=== PATIENT | male | born 1995 | race Caucasian/White ===

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

== ENCOUNTER 2017-01-16 20:54 | Emergency (ER) | payer SELFPAY ==
[~2017-01-16] VITALS: Ht 170.2 cm; Wt 60.6 kg
[2017-01-16 21:02] VITALS: BP 139/84; PULSE 88; RESP 18; TEMP 97.7; O2SAT 99
[2017-01-16] MEDS ORDERED: ACETAMINOPHEN/HYDROcodone 325 MG/5 MG TAB PO ONE (21:15)
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
[2017-01-16] MEDS ORDERED: TRAM50 PO (21:47)
--- NOTE | 2017-01-16 22:05 | RADRPT ---
EXAM DATE/TIME: 01/16/2017 21:23 [facility] COMPARISON: No previous studies available for comparison. INDICATIONS : Right hand pain after slamming hand in car door today. MEDICAL HISTORY : None. SURGICAL HISTORY : None. ENCOUNTER: Initial ACUITY: 1 day PAIN SCORE: 10/10 LOCATION: Right hand, 5th digit. FINDINGS: Three view examination of the right hand demonstrates healing right fifth metacarpal fracture. No acu te fracture identified. CONCLUSION: 1. There is a healing right fifth metacarpal fracture. No dislocation. No other fractures are identif ied. Deni Aviles MD on January 16, 2017 at 22:02 Board Certified Radiologist. This report was verified electronically.
== END 2017-01-16 22:12 | disposition home or self-care (01) ==
LOC: PHEFT 20:54
DX: S62.356A Nondisplaced fracture of shaft of fifth metacarpal bone, right hand, initial encounter for closed fracture (principal); W23.0XXA Caught, crushed, jammed, or pinched between moving objects, initial encounter
CPT/HCPCS: 29125; 73130

== ENCOUNTER 2017-03-08 03:48 | Emergency (ER) | payer SELFPAY ==
[~2017-03-08] VITALS: Ht 172.7 cm; Wt 58.7 kg
[~2017-03-08 03:48] MED LIST changes: -HYDR-3533 PO; -IBUP800T23 PO; +TRAM50 PO
[2017-03-08 03:53] VITALS: BP 155/77; PULSE 84; RESP 20; TEMP 98; O2SAT 100
[2017-03-08 04:17] VITALS: BP 155/77; PULSE 84; RESP 18; TEMP 98; O2SAT 100
--- NOTE | 2017-03-08 04:42 | PD ---
HPI Chief Complaint: GI Complaint Time Seen by Provider: 04:37 Travel History International Travel<30 days: No Contact w/Intl Traveler<30days: No Traveled to known affect area: No History of Present Illness HPI The patient is a 21-year-old male that complains of nausea, vomiting and diarrhea for 3 days. The vomiting was 4-5 times the last 24 hours. He denies any fever or blood in the stool or vomitus. He has some slight generalized abdominal discomfort but no focal abdominal pain at this time. PFSH Past Medical History ADHD: Yes Weight (Kg): 3 Cancer: No Cardiovascular Problems: No Developmental Delay: No Diabetes: No Diminished Hearing: No Headaches: No Medical other: Yes (PTSD) Psychiatric: Yes (adhd, schizophrenia and bipolar) Immunizations Current: Yes Migraines: No Schizophrenia: Yes Seizures: No Thyroid Disease: No Ulcer: No Influenza Vaccination: No ?: Not Past Surgical History Section: No Joint Replacement: No Pacemaker: No Other Surgery: Yes (Surg. rt. arm and fracture right little finger.) Social History Alcohol Use: No Tobacco Use: Yes (/ PPD) Substance Use: Yes (marijuana) Allergies-Medications (Allergen,Severity, Reaction): Coded Allergies: morphine (Verified Allergy, Intermediate, Rash, 03/08/17) Reported Meds & Prescriptions Reported Meds & Active Scripts Active No Active Prescriptions or Reported Medications Review of Systems Except as stated in HPI: all other systems reviewed are Neg Physical Exam Narrative GENERAL: The patient is alert, oriented 3 in minimal apparent distress with his abdominal discomfort. The vital signs show blood pressure 155/77 but otherwise normal. The patient appears moderately dehydrated. SKIN: Focused skin assessment warm/dry. HEAD: Atraumatic. Normocephalic. EYES: Pupils equal and round. No scleral icterus. No injection or drainage. ENT: No nasal bleeding or discharge. Mucous membranes pink and moist. NECK: Trachea midline. No JVD. CARDIOVASCULAR: Regular rate and rhythm. No murmur appreciated. RESPIRATORY: No accessory muscle use. Clear to auscultation. Breath sounds equal bilaterally. GASTROINTESTINAL: Abdomen soft, non-tender, nondistended. Hepatic and splenic margins not palpable. No guarding or rebound is present. There is minimal discomfort to deep direct palpation diffusely over the abdomen but this is very minimal. MUSCULOSKELETAL: No obvious deformities. No clubbing. No cyanosis. No edema. NEUROLOGICAL: Awake and alert. No obvious cranial nerve deficits. Motor grossly within normal limits. Normal speech. PSYCHIATRIC: Appropriate mood and affect; insight and judgment normal. Data Data Last Documented VS Vital Signs Date Time Temp Pulse Resp B/P (MAP) Pulse Ox O2 Delivery O2 Flow Rate FiO2 03/08/17 05:49 98.2 81 15 142/70 (94) 100 Orders Orders Complete Blood Count With Diff (03/08/17 04:42) Comprehensive Metabolic Panel (03/08/17 04:42) Lipase (03/08/17 04:42) Urinalysis - C+S If Indicated (03/08/17 04:42) Iv Access Insert/Monitor (03/08/17 04:42) Ecg Monitoring (03/08/17 04:42) Oximetry (03/08/17 04:42) Sodium Chloride 0.9% Flush (Ns Flush) (03/08/17 04:45) Ondansetron Inj (Zofran Inj) (03/08/17 04:45) Sodium Chlor 0.9% 1000 Ml Inj (Ns 1000 M (03/08/17 04:45) Ed Discharge Order (03/08/17 05:54) Labs Laboratory Tests Test 03/08/17 04:55 White Blood Count 10.2 TH/MM3 Red Blood Count 5.21 MIL/MM3 Hemoglobin 14.6 GM/DL Hematocrit 45.0 % Mean Corpuscular Volume 86.4 FL Mean Corpuscular Hemoglobin 28.0 PG Mean Corpuscular Hemoglobin Concent 32.5 % Red Cell Distribution Width 12.3 % Platelet Count 388 TH/MM3 Mean Platelet Volume 8.3 FL Neutrophils (%) (Auto) 74.9 % Lymphocytes (%) (Auto) 19.5 % Monocytes (%) (Auto) 4.9 % Eosinophils (%) (Auto) 0.2 % Basophils (%) (Auto) 0.5 % Neutrophils # (Auto) 7.6 TH/MM3 Lymphocytes # (Auto) 2.0 TH/MM3 Monocytes # (Auto) 0.5 TH/MM3 Eosinophils # (Auto) 0.0 TH/MM3 Basophils # (Auto) 0.1 TH/MM3 CBC Comment DIFF FINAL Differential Comment Urine Color STRAW Urine Turbidity CLEAR Urine pH 6.0 Urine Specific [place] 1.005 Urine Protein NEG mg/dL Urine Glucose (UA) NEG mg/dL Urine Ketones 15 mg/dL Urine Occult Blood NEG Urine Nitrite NEG Urine Bilirubin NEG Urine Leukocyte Esterase NEG Urine RBC 0-2 /hpf Urine WBC 0-2 /hpf Urine Squamous Epithelial Cells 0-5 /hpf Urine Bacteria NONE /hpf Microscopic Urinalysis Comment CULT NOT INDICATED Blood Urea Nitrogen 14 MG/DL Creatinine 0.79 MG/DL Random Glucose 91 MG/DL Total Protein 8.5 GM/DL Albumin 4.8 GM/DL Calcium Level 9.4 MG/DL Alkaline Phosphatase 60 U/L Aspartate Amino Transf (AST/SGOT) 18 U/L Alanine Aminotransferase (ALT/SGPT) 23 U/L Total Bilirubin 0.9 MG/DL Sodium Level 134 MEQ/L Potassium Level 3.2 MEQ/L Chloride Level 102 MEQ/L Carbon Dioxide Level 23.5 MEQ/L Anion Gap 9 MEQ/L Estimat Glomerular Filtration Rate 126 ML/MIN Lipase 108 U/L [facility] Medical Decision Making Medical Screen Exam Complete: Yes Emergency Medical Condition: Yes Medical Record Reviewed: Yes Differential Diagnosis Gastroenteritis, colitis, food poisoning, electrolyte disorder, dehydration Narrative Course The patient has a gastroenteritis. This is likely viral. It is now 0555 and the patient is successfully drinking Gatorade without any nausea. Impression: Gastroenteritis Plan: The patient will given a prescription for Compazine and follow-up with a primary care physician. He needs to increase his liquid intake. Diagnosis Primary Impression: Gastroenteritis Additional Impression: Mild dehydration Additional Instructions: Continue to increase your clear liquid intake. The Compazine is one tablet every 6 hours as needed for nausea. Follow-up with a primary care physician next week. Scripts No Active Prescriptions or Reported Meds Disposition: 01 DISCHARGE HOME Condition: Stable Jabier Mcconnell MD Mar 08, 2017 04:41
[2017-03-08] MEDS ORDERED: ONDANSETRON HCL 4 MG/2 ML VIAL IV ONE (04:45)
[2017-03-08] MEDS ORDERED: SODIUM CHLOR 0.9% 1000 ML INJ 1,000 ML IV SCH (04:45)
[2017-03-08] MEDS ORDERED: SODIUM CHLORIDE 0.9% FLUSH 10 ML FLUSH IV FLUSH PRN (04:45)
[2017-03-08 05:15] LABS: AUTOMATED NEUTROPHIL # 7.6 TH/MM3 (1.8-7.7); BASOPHIL # 0.1 TH/MM3 (0-0.2); BASOPHIL % 0.5 % (0.0-2.0); EOSINOPHIL % 0.2 % (0.0-4.0); HEMOGLOBIN 14.6 GM/DL (13.0-17.0); LYMPH % 19.5 % (9.0-44.0); MEAN CELL VOLUME 86.4 FL (80.0-100.0); MEAN CORPUSCULAR HGB CONC 32.5 % (32.0-36.0); MEAN PLATELET VOLUME 8.3 FL (7.0-11.0); MONO % 4.9 % (0.0-8.0); MONOCYTE # 0.5 TH/MM3 (0-0.9); NEUT % 74.9 % (16.0-70.0); PLATELET COUNT 388 TH/MM3 (150-450); RED BLOOD COUNT 5.21 MIL/MM3 (4.50-5.90); RED CELL DISTRIBUTION WIDTH 12.3 % (11.6-17.2); WHITE BLOOD COUNT 10.2 TH/MM3 (4.0-11.0)
[2017-03-08 05:18] LABS: BILIRUBIN, URINE NEG (NEG); BLOOD, URINE NEG (NEG); GLUCOSE,URINE NEG (NEG); KETONE, URINE 15 mg/dL (NEG); NITRITE,URINE NEG (NEG); URINE LEUKOCYTE ESTERASE NEG (NEG)
[2017-03-08 05:23] LABS: CHLORIDE 102 MEQ/L (98-107); SODIUM (NA) 134 MEQ/L (136-145)
[2017-03-08 05:26] LABS: CALCIUM 9.4 MG/DL (8.5-10.1)
[2017-03-08 05:27] LABS: ALBUMIN 4.8 GM/DL (3.4-5.0); BICARBONATE 23.5 MEQ/L (21.0-32.0); BLOOD UREA NITROGEN 14 MG/DL (7-18); GLUCOSE,RANDOM 91 MG/DL (74-106)
[2017-03-08 05:30] LABS: ALT (GPT) 23 U/L (9-52); AST (GOT) 18 U/L (15-39); CREATININE 0.79 MG/DL (0.60-1.30); GLOMERULAR FILTRATION RATE 126 ML/MIN (>89)
[2017-03-08 05:31] LABS: TOTAL BILIRUBIN ADULT 0.9 MG/DL (0.2-1.0); TOTAL PROTEIN 8.5 GM/DL (6.4-8.2)
[2017-03-08 05:32] LABS: RBC, URINE 0-2 /hpf (0-3); URINE COLOR STRAW (YELLW/STRAW); WBC, URINE 0-2 /hpf (0-5)
[2017-03-08 05:33] LABS: ALKALINE PHOSPHATASE 60 U/L (45-117); SQUAMOUS EPITHELIAL CELL URINE 0-5 /hpf (0-5)
[2017-03-08 05:49] VITALS: BP 142/70; TEMP 98.2
[2017-03-08] MEDS ORDERED: PROC10TA PO (05:59)
== END 2017-03-08 06:13 | disposition home or self-care (01) ==
LOC: PHED 03:48
DX: K52.9 Noninfective gastroenteritis and colitis, unspecified (principal); E86.0 Dehydration; F17.210 Nicotine dependence, cigarettes, uncomplicated
CPT/HCPCS: 80053; 81001; 83690; 85025; 96361; 96374; 99283; J2405; J7030

== ENCOUNTER 2018-01-03 23:07 | Observation (INO) ==
[2018-01-03] MEDS ORDERED: Ketorolac Inj 30 MG/ML (IVP) Vial IV.PUSH ONE (23:54)
[2018-01-03] MEDS ORDERED: Clindamycin Inj 600 MG/4 ML Vial IV.SIG ONE (23:55)
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
[2018-01-04 00:19] LABS: Baso # (Auto) 0.1 th/mm3 (0.0-0.2); Baso % (Auto) 0.5 % (0.0-2.0); Eos # (Auto) 0.3 th/mm3 (0.0-0.4); Hematocrit 37.7 % (39.0-51.0); Hemoglobin 12.6 gm/dL (13.0-17.0); Lymph # (Auto) 1.9 th/mm3 (1.0-4.8); Lymph % (Auto) 14.8 % (9.0-44.0); Mean Corpuscular HGB Conc 33.5 % (32.0-36.0); Mean Corpuscular Hemoglobin 29.1 pg (27.0-34.0); Mean Corpuscular Volume 86.9 fL (80.0-100.0); Mean Platelet Volume 8.2 fL (7.0-11.0); Mono # (Auto) 0.9 th/mm3 (0.0-0.9); Mono % (Auto) 6.6 % (0.0-8.0); Neut # (Auto) 9.7 th/mm3 (1.8-7.7); Neut % (Auto) 76.1 % (16.0-70.0); Platelet Count 267 th/mm3 (150-450); Red Blood Count 4.34 mil/mm3 (4.50-5.90); Red Cell Distribution Width 12.8 % (11.6-17.2); White Blood Count 12.9 th/mm3 (4.0-11.0)
[2018-01-04 00:27] LABS: Chloride 105 meq/L (98-107); Potassium 3.8 meq/L (3.5-5.1); Sodium 140 meq/L (136-145)
[2018-01-04 00:30] LABS: Calcium 8.8 mg/dL (8.5-10.1)
[2018-01-04 00:31] LABS: Albumin 3.7 g/dL (3.4-5.0); Anion Gap 9 meq/L (5-15); Blood Urea Nitrogen 10 mg/dL (7-18); Carbon Dioxide 26.4 meq/L (21.0-32.0); Glucose,Random 100 mg/dL (74-106); Lipase 84 U/L (73-393)
[2018-01-04 00:34] LABS: Alanine Aminotransferase 22 U/L (9-52); Aspartate Aminotransferase 15 U/L (15-39); Glomerular Filtration Rate Greater Than 89 mL/min (>89)
[2018-01-04 00:35] LABS: Total Protein 7.5 g/dL (6.4-8.2)
[2018-01-04 00:36] LABS: Alkaline Phosphatase 51 U/L (45-117)
[2018-01-04 01:34] VITALS: O2SAT 98
[2018-01-04] MEDS ORDERED: Acetaminophen 325 MG Tablet PO PRN (01:43)
[2018-01-04] MEDS ORDERED: Bisacodyl 10 MG Supp RECTAL PRN (01:43)
[2018-01-04 03:57] VITALS: TEMP 97.2
[2018-01-04] MEDS ORDERED: Clindamycin 900 mg/NS Premix 900 MG/50 ML PIGGYBACK IV.SIG SCH (08:00)
[2018-01-04] MEDS ORDERED: Senna/Docusate Sodium 8.6/50 MG Tablet PO SCH (09:00)
[2018-01-04 09:21] VITALS: BP 122/59; PULSE 73; RESP 20
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
[2018-01-04] MEDS ORDERED: ALPRAZolam 0.25 MG Tablet PO PRN (10:15)
[2018-01-04] MEDS ORDERED: Ketorolac Inj 30 MG/ML (IVP) Vial IV.PUSH PRN (10:20)
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
--- NOTE | 2018-01-04 13:32 | P.AMA ---
AMA Note - Diagnosis (1) Lower extremity cellulitis AMA Statement: Patient Deejay Garcia JR has decided to leave the hospital against medical advice. This patient has the capacity to refuse care and understands the risks of leaving, including permanent disability and/or , and has had an opportunity to ask questions about his/her condition. The patient has been informed that he/she may return for care at any time, and follow up has been arranged/advised. Discharge Disposition: Against Medical Advice
== END 2018-01-04 13:30 | disposition left against medical advice (07) ==
LOC: PHED 23:07 → PHEDA 23:07 → PH3 01-04 02:12
PROVIDERS: ADMIT Internal Medicine; ATTEND Internal Medicine
DX: S81.811D Laceration without foreign body, right lower leg, subsequent encounter; V86.55XD Driver of 3- or 4- wheeled all-terrain vehicle (ATV) injured in nontraffic accident, subsequent encounter; L03.115 Cellulitis of right lower limb; Z88.5 Allergy status to narcotic agent; F17.210 Nicotine dependence, cigarettes, uncomplicated